=== PATIENT | male | born 1945 | race Caucasian/White ===

== ENCOUNTER 2019-08-29 11:56 | Inpatient (IN) ==
[2019-08-29 14:40] LABS: ABG Base Excess -19.1 MMOL/L (-2.5-2.5); ABG HCO3 10.9 MMOL/L (20-26); ABG Oxygen Saturation 99.8 % (95-100); ABG PCO2 33.4 MM HG (35-48); ABG TCO2 9.5 MMOL/L (23-27); Allen Test Positive; Pt O2 Delivery Device Ventilator
[2019-08-29] MEDS ORDERED: SODIUM CHLORIDE 0.9% 1,000 ML IV ONE (14:41)
[2019-08-29] MEDS ORDERED: MAGNESIUM SULF RIDER 2 GM in PREMIX 1 EACH IV PRN (14:41)
[2019-08-29] MEDS ORDERED: SODIUM PHOSPHATE INJ 22.5 MMOL in SODIUM CHLORIDE 0.9% 250 ML IV PRN (14:41)
[2019-08-29] MEDS ORDERED: INSULIN REGULAR 100 UNIT/ML IV ONE (14:41)
[2019-08-29] MEDS ORDERED: DEXTROSE 10% 250 ML BAG IV PRN ×2 (14:41)
[2019-08-29] MEDS ORDERED: SODIUM BICARB INJ 100 MEQ in STERILE WATER INJ 400 ML IV PRN (14:41)
[2019-08-29] MEDS ORDERED: MAGNESIUM SULF RIDER 4 GM in PREMIX 1 EACH IV PRN (14:41)
[2019-08-29 14:42] LABS: Apearance,Urine CLOUDY (Clear); Bacteria,Urine Few /HPF (Few); Bilirubin,Urine Negative (Negative); Blood, Urine Large mg/dL (Negative); Glucose,Urine (UA) >=500 mg/dL (Negative); Hyaline Casts,Urine 10 /LPF (0-3); Ketones,Urine 80 mg/dL (Negative); Mucus,Urine Occasional /LPF (Occasional); Nitrite,Urine Negative (Negative); Protein,Urine 30 MG/DL; RBC,Urine 2 /HPF (0-4); Squamous Epithelial Cell,Urine Occasional /HPF (0-10); Urine Color Yellow (Yellow); Urine Specific Gravity 1.013 (1.001-1.035); Urine Urobilinogen < 2.0 EU/DL (0.2-1.0); WBC,Urine 2 /HPF (0-6)
[2019-08-29 14:46] LABS: ABG PH 7.102 (7.35-7.45)
[2019-08-29 14:58] LABS: Basophils # 0.1 10*3/uL (0.0-0.2); Basophils % 0.3 % (0.0-0.8); Hematocrit 42.9 VOL% (42.0-52.0); Hemoglobin 14.5 GM/DL (14.0-18.0); Immature Granulocytes % 2.2 %; Immature Granulocytes Absolute 0.32 #; Lymphocytes # 0.7 10*3/uL (1.4-4.0); Mean Corpuscular HGB Conc 33.8 GM/DL (32-36); Mean Corpuscular Volume 102.1 FL (87-102); Mean Platelet Volume 10.7 FL (9.6-12.0); Monocytes % 12.6 % (1.7-12.7); NRBC # 0.02 10*3/uL; Neutrophils % 79.9 % (38.7-73.9); Platelet Count 184 T/CUMM (130-400); Red Cell Distribution Width 12.4 % (9.3-17.3); White Blood Count 14.5 T/CUMM (4-12)
[2019-08-29 15:13] LABS: Calcium 7.8 MG/DL (8.5-10.1)
[2019-08-29] MEDS ORDERED: MIDAZOLAM 100 MG in SODIUM CHLORIDE 0.9% 80 ML IV PRN (15:19)
[2019-08-29 15:27] LABS: Albumin 3.1 G/DL (3.4-5.0); Bilirubin,Total 0.6 MG/DL (0.2-1.0); Calcium 7.8 MG/DL (8.5-10.1); Osmolality,Calculated 297.1 MOS/KG (273-304); Total Protein 6.4 G/DL (6.4-8.3)
[2019-08-29] MEDS: INSULIN REGULAR DRIP 100 ML IV SCH (15:33)
[2019-08-29] MEDS: SODIUM CHLORIDE 0.9% 1,000 ML IV SCH ×2 (15:41→17:43)
[2019-08-29] MEDS: PROPOFOL 1,000 MG/100 ML BOTTLE IV SCH (16:07)
[2019-08-29] MEDS: fentaNYL INJ 1,250 MCG in SODIUM CHLORIDE 0.9% 225 ML IV PRN (17:04)
[2019-08-29] MEDS ORDERED: SODIUM CHLORIDE 0.9% 1,000 ML IV SCH (19:41)
[2019-08-29 19:45] LABS: Calcium 8.1 MG/DL (8.5-10.1); Osmolality,Calculated 298.4 MOS/KG (273-304)
[2019-08-29 23:40] LABS: Osmolality,Calculated 275.4 MOS/KG (273-304)
[2019-08-29] MEDS ORDERED: SODIUM CHLOR 0.9% KCL 20 MEQ 20 MEQ/1,000 ML BAG IV SCH (23:45)
[2019-08-30] MEDS ORDERED: DEXT 5% NACL 0.9% KCL 20 MEQ 20 MEQ/1,000 ML BAG IV SCH (00:30)
[2019-08-30 00:34] LABS: Calcium 5.5 MG/DL (8.5-10.1)
[2019-08-30] MEDS: PROPOFOL 1,000 MG/100 ML BOTTLE IV SCH ×2 (00:34→10:09)
[2019-08-30 01:09] LABS: Calcium 7.6 MG/DL (8.5-10.1); Osmolality,Calculated 294.8 MOS/KG (273-304)
[2019-08-30] MEDS: INSULIN REGULAR DRIP 100 ML IV SCH (01:40)
[2019-08-30 02:39] LABS: Calcium 7.6 MG/DL (8.5-10.1); Osmolality,Calculated 296.7 MOS/KG (273-304)
[2019-08-30] MEDS: DEXT 5% NACL 0.45% KCL 20 MEQ 20 MEQ/1,000 ML BAG IV SCH ×2 (03:32→07:33)
[2019-08-30 03:58] LABS: ABG Base Excess -6.4 MMOL/L (-2.5-2.5); ABG HCO3 19.2 MMOL/L (20-26); ABG Oxygen Saturation 99.1 % (95-100); ABG PCO2 41.5 MM HG (35-48); ABG TCO2 17.6 MMOL/L (23-27); Allen Test Positive; Pt O2 Delivery Device Ventilator
[2019-08-30 04:24] LABS: Basophils % 0.1 % (0.0-0.8); Eosinophils % 0.2 % (0.00-10.9); Hematocrit 36.2 VOL% (42.0-52.0); Hemoglobin 12.7 GM/DL (14.0-18.0); Immature Granulocytes % 0.8 %; Immature Granulocytes Absolute 0.08 #; Lymphocytes # 0.6 10*3/uL (1.4-4.0); Lymphocytes % 6.2 % (21.2-54.2); Mean Corpuscular HGB Conc 35.1 GM/DL (32-36); Mean Corpuscular Volume 97.8 FL (87-102); Mean Platelet Volume 10.9 FL (9.6-12.0); Monocytes % 13.4 % (1.7-12.7); Neutrophils % 79.3 % (38.7-73.9); Platelet Count 136 T/CUMM (130-400); Red Cell Distribution Width 12.8 % (9.3-17.3); White Blood Count 9.7 T/CUMM (4-12)
[2019-08-30 04:46] LABS: Calcium 7.2 MG/DL (8.5-10.1)
[2019-08-30] MEDS: fentaNYL INJ 1,250 MCG in SODIUM CHLORIDE 0.9% 225 ML IV PRN (06:14)
[2019-08-30 06:51] LABS: Calcium 7.5 MG/DL (8.5-10.1); Osmolality,Calculated 287.3 MOS/KG (273-304)
[2019-08-30] MEDS ORDERED: INSULIN REGULAR 100 UNIT/ML SUBCUT SCH ×2 (09:08→21:00)
[2019-08-30] MEDS ORDERED: INSULIN GLARGINE 100 UNIT/ML SUBCUT SCH (09:13)
[2019-08-30] MEDS: THIAMINE 200 MG/2 ML VIAL IV SCH (10:00)
[2019-08-30] MEDS: SODIUM CHLORIDE 0.45% 1,000 ML IV SCH ×3 (10:10→23:38)
[2019-08-30] MEDS: FOLIC ACID INJ 1 MG in SYRINGE 1 EACH IV SCH (10:14)
[2019-08-30] MEDS: HALOPERIDOL 5 MG/ML AMP IV PRN ×2 (12:00→20:13)
[2019-08-30] MEDS ORDERED: LORazepam 2 MG/1 ML VIAL IM PRN (12:59)
[2019-08-30] MEDS ORDERED: MORPHINE 4 MG/1 ML VIAL IV PRN (13:30)
[2019-08-30] MEDS: INSULIN REGULAR 100 UNIT/ML SUBCUT SCH ×2 (14:05→17:33)
[2019-08-30] MEDS: LORazepam 2 MG/1 ML VIAL IV PRN ×2 (15:14→21:45)
[2019-08-30] MEDS ORDERED: GLUCAGON 1 MG VIAL IM PRN ×3 (16:21→21:11)
[2019-08-30 16:41] LABS: Barbiturates Screen,Urine Negative (Negative); Benzodiazepines Screen,Urine Positive (Negative); Cannabinoid Screen,Urine Negative (Negative); Opiate Screen,Urine Negative (Negative); Phencyclidine Screen,Urine Negative (Negative)
[2019-08-30 20:11] LABS: Osmolality,Calculated 293.3 MOS/KG (273-304)
[2019-08-30] MEDS ORDERED: DEXTROSE 50% 25 GM/50 ML VIAL IV PRN ×2 (20:27→21:11)
[2019-08-31] MEDS: INSULIN REGULAR 100 UNIT/ML SUBCUT SCH ×4 (01:07→16:47)
[2019-08-31] MEDS: LORazepam 2 MG/1 ML VIAL IV PRN ×4 (01:12→11:50)
[2019-08-31] MEDS: HALOPERIDOL 5 MG/ML AMP IV PRN (02:56)
[2019-08-31 04:44] LABS: Basophils % 0.1 % (0.0-0.8); Eosinophils % 0.1 % (0.00-10.9); Hematocrit 34.9 VOL% (42.0-52.0); Immature Granulocytes % 0.9 %; Immature Granulocytes Absolute 0.07 #; Lymphocytes # 0.7 10*3/uL (1.4-4.0); Lymphocytes % 8.2 % (21.2-54.2); Mean Corpuscular HGB Conc 34.4 GM/DL (32-36); Mean Corpuscular Volume 98.6 FL (87-102); Monocytes % 11.9 % (1.7-12.7); Neutrophils % 78.8 % (38.7-73.9); Platelet Count 112 T/CUMM (130-400); Red Blood Count 3.54 MC/CUMM (3.8-5.5); Red Cell Distribution Width 12.8 % (9.3-17.3); White Blood Count 7.9 T/CUMM (4-12)
[2019-08-31 05:02] LABS: Albumin 2.3 G/DL (3.4-5.0); Bilirubin,Total 0.5 MG/DL (0.2-1.0); Calcium 8.1 MG/DL (8.5-10.1); Osmolality,Calculated 288.5 MOS/KG (273-304); Total Protein 5.2 G/DL (6.4-8.3)
[2019-08-31 05:41] LABS: Folate 6.5 NG/ML (5.4-24.0)
[2019-08-31] MEDS: POTASSIUM CHLORIDE RIDER 10 MEQ in PREMIX 1 EACH IV PRN ×4 (05:44→09:57)
[2019-08-31] MEDS: SODIUM CHLORIDE 0.45% 1,000 ML IV SCH ×3 (05:59→21:11)
[2019-08-31 07:05] LABS: Anisocytosis 2+; Band Neutrophils 2 % (0-10); Lymphocytes 7 % (20-55); Macrocytosis 2+; Platelet Estimate Normal; Polychromasia 2+; Segmented Neutrophils 79 % (50-85); Total Cells Counted 100
[2019-08-31] MEDS ORDERED: BISACODYL 10 MG SUPP RECTAL PRN (07:59)
[2019-08-31] MEDS: INSULIN GLARGINE 100 UNIT/ML SUBCUT SCH (08:45)
[2019-08-31] MEDS: THIAMINE 200 MG/2 ML VIAL IV SCH (08:45)
[2019-08-31] MEDS ORDERED: INSULIN GLARGINE 100 UNIT/ML SUBCUT SCH (09:00)
[2019-08-31] MEDS: FOLIC ACID INJ 1 MG in SYRINGE 1 EACH IV SCH (09:24)
[2019-08-31] MEDS: chlordiazePOXIDE 25 MG CAPSULE PO SCH ×3 (11:42→21:12)
[2019-08-31] MEDS: INSULIN LISPRO 100 UNIT/ML SUBCUT SCH ×2 (11:50→16:46)
[2019-09-01] MEDS: INSULIN REGULAR 100 UNIT/ML SUBCUT SCH ×5 (05:11→20:35)
[2019-09-01] MEDS: INSULIN LISPRO 100 UNIT/ML SUBCUT SCH ×5 (05:11→20:35)
[2019-09-01 06:07] LABS: Basophils % 0.2 % (0.0-0.8); Eosinophils % 0.2 % (0.00-10.9); Hematocrit 38.8 VOL% (42.0-52.0); Hemoglobin 13.4 GM/DL (14.0-18.0); Immature Granulocytes % 0.8 %; Immature Granulocytes Absolute 0.07 #; Lymphocytes # 0.9 10*3/uL (1.4-4.0); Lymphocytes % 9.2 % (21.2-54.2); Mean Corpuscular HGB Conc 34.5 GM/DL (32-36); Mean Platelet Volume 10.8 FL (9.6-12.0); Monocytes % 11.8 % (1.7-12.7); Neutrophils % 77.8 % (38.7-73.9); Platelet Count 124 T/CUMM (130-400); Red Cell Distribution Width 12.6 % (9.3-17.3); White Blood Count 9.2 T/CUMM (4-12)
[2019-09-01 06:34] LABS: Prealbumin 8.2 MG/DL (20-40)
[2019-09-01 06:35] LABS: Albumin 2.4 G/DL (3.4-5.0); Bilirubin,Total 0.7 MG/DL (0.2-1.0); Calcium 8.8 MG/DL (8.5-10.1); Osmolality,Calculated 280.7 MOS/KG (273-304); Total Protein 5.8 G/DL (6.4-8.3)
[2019-09-01] MEDS: SODIUM CHLORIDE 0.45% 1,000 ML IV SCH ×3 (06:36→21:30)
[2019-09-01] MEDS: THIAMINE 200 MG/2 ML VIAL IV SCH (09:07)
[2019-09-01] MEDS: chlordiazePOXIDE 25 MG CAPSULE PO SCH (09:08)
[2019-09-01] MEDS: FOLIC ACID INJ 1 MG in SYRINGE 1 EACH IV SCH (09:17)
[2019-09-01] MEDS ORDERED: METOPROLOL TARTRATE 5 MG/5 ML VIAL IV ONE (09:19)
[2019-09-01] MEDS: POTASSIUM CHLORIDE RIDER 10 MEQ in PREMIX 1 EACH IV PRN ×4 (09:33→19:11)
[2019-09-01] MEDS: INSULIN GLARGINE 100 UNIT/ML SUBCUT SCH (11:06)
[2019-09-01] MEDS ORDERED: INFLUENZA VIRUS VACCINE 0.5 ML SYRINGE IM ONE (11:19)
[2019-09-01] MEDS ORDERED: chlordiazePOXIDE 10 MG CAPSULE NG PRN (12:37)
[2019-09-01 13:07] LABS: ABG Base Excess -3.6 MMOL/L (-2.5-2.5); ABG HCO3 21.4 MMOL/L (20-26); ABG Oxygen Saturation 98.9 % (95-100); ABG PCO2 31.1 MM HG (35-48); ABG PH 7.414 (7.35-7.45); ABG TCO2 17.5 MMOL/L (23-27)
[2019-09-01] MEDS: ZINC OXIDE PASTE 113 GM TUBE TOP SCH ×2 (13:21→20:34)
[2019-09-01] MEDS: DEXTROSE 10% 25 GM/250 ML BAG IV PRN ×2 (15:56→20:36)
[2019-09-01] MEDS: hydrALAZINE 20 MG/1 ML VIAL IV PRN (20:22)
[2019-09-01] MEDS: LACTULOSE 20 GM/30 ML UDCUP PO SCH (20:24)
[2019-09-01] MEDS: METOPROLOL TARTRATE 5 MG/5 ML VIAL IV PRN (21:59)
[2019-09-02] MEDS: POTASSIUM CHLORIDE RIDER 10 MEQ in PREMIX 1 EACH IV PRN ×6 (00:04→17:37)
[2019-09-02] MEDS: hydrALAZINE 20 MG/1 ML VIAL IV PRN (04:48)
[2019-09-02 05:16] LABS: Basophils % 0.3 % (0.0-0.8); Eosinophils # 0.1 10*3/uL (0.0-0.87); Eosinophils % 1.1 % (0.00-10.9); Hematocrit 37.7 VOL% (42.0-52.0); Hemoglobin 13.3 GM/DL (14.0-18.0); Immature Granulocytes % 0.5 %; Immature Granulocytes Absolute 0.05 #; Lymphocytes # 0.6 10*3/uL (1.4-4.0); Lymphocytes % 6.5 % (21.2-54.2); Mean Corpuscular HGB Conc 35.3 GM/DL (32-36); Mean Corpuscular Volume 96.2 FL (87-102); Mean Platelet Volume 11.2 FL (9.6-12.0); Monocytes % 13.3 % (1.7-12.7); Neutrophils % 78.3 % (38.7-73.9); Platelet Count 117 T/CUMM (130-400); Red Blood Count 3.92 MC/CUMM (3.8-5.5); Red Cell Distribution Width 12.7 % (9.3-17.3); White Blood Count 9.3 T/CUMM (4-12)
[2019-09-02 05:48] LABS: Eosinophils 1 % (0-10); Lymphocytes 8 % (20-55); Segmented Neutrophils 81 % (50-85); Total Cells Counted 100
[2019-09-02 05:51] LABS: Macrocytosis Slight; Platelet Estimate Adequate; Spherocytes 1+
[2019-09-02 06:56] LABS: Albumin 2.3 G/DL (3.4-5.0); Bilirubin,Total 1.1 MG/DL (0.2-1.0); Calcium 8.8 MG/DL (8.5-10.1); Osmolality,Calculated 283.5 MOS/KG (273-304); Total Protein 5.8 G/DL (6.4-8.3)
[2019-09-02] MEDS: INSULIN GLARGINE 100 UNIT/ML SUBCUT SCH (09:27)
[2019-09-02] MEDS: ZINC OXIDE PASTE 113 GM TUBE TOP SCH ×2 (09:28→22:51)
[2019-09-02] MEDS: INSULIN REGULAR 100 UNIT/ML SUBCUT SCH ×4 (09:29→22:51)
[2019-09-02] MEDS: INSULIN LISPRO 100 UNIT/ML SUBCUT SCH ×4 (09:29→22:42)
[2019-09-02] MEDS: LACTULOSE 20 GM/30 ML UDCUP PO SCH (09:30)
[2019-09-02] MEDS: THIAMINE 200 MG/2 ML VIAL IV SCH (09:30)
[2019-09-02] MEDS: FOLIC ACID INJ 1 MG in SYRINGE 1 EACH IV SCH (09:31)
[2019-09-02] MEDS: SODIUM CHLORIDE 0.45% 1,000 ML IV SCH (10:26)
[2019-09-02] MEDS: LACTULOSE 20 GM/30 ML UDCUP NG SCH ×2 (15:13→22:41)
[2019-09-02] MEDS: METOPROLOL TARTRATE 5 MG/5 ML VIAL IV PRN (16:02)
[2019-09-03] MEDS: POTASSIUM CHLORIDE RIDER 10 MEQ in PREMIX 1 EACH IV PRN (00:26)
[2019-09-03] MEDS: hydrALAZINE 20 MG/1 ML VIAL IV PRN ×2 (01:59→20:28)
[2019-09-03] MEDS: METOPROLOL TARTRATE 5 MG/5 ML VIAL IV PRN (03:25)
[2019-09-03 03:46] LABS: Basophils # 0.1 10*3/uL (0.0-0.2); Basophils % 0.4 % (0.0-0.8); Eosinophils # 0.1 10*3/uL (0.0-0.87); Eosinophils % 0.4 % (0.00-10.9); Hematocrit 40.5 VOL% (42.0-52.0); Hemoglobin 13.8 GM/DL (14.0-18.0); Immature Granulocytes Absolute 0.14 #; Lymphocytes # 0.7 10*3/uL (1.4-4.0); Lymphocytes % 5.1 % (21.2-54.2); Mean Corpuscular HGB Conc 34.1 GM/DL (32-36); Mean Corpuscular Volume 98.8 FL (87-102); Mean Platelet Volume 10.6 FL (9.6-12.0); Monocytes % 14.3 % (1.7-12.7); Neutrophils % 78.8 % (38.7-73.9); Platelet Count 211 T/CUMM (130-400); Red Cell Distribution Width 12.8 % (9.3-17.3); White Blood Count 13.8 T/CUMM (4-12)
[2019-09-03 05:34] LABS: Albumin 2.3 G/DL (3.4-5.0); Bilirubin,Total 1.2 MG/DL (0.2-1.0); Calcium 9.3 MG/DL (8.5-10.1); Osmolality,Calculated 285.7 MOS/KG (273-304)
[2019-09-03] MEDS ORDERED: LACTULOSE 20 GM/30 ML UDCUP NG ONE (08:24)
[2019-09-03] MEDS ORDERED: FUROSEMIDE 40 MG/4 ML VIAL IV ONE (08:28)
[2019-09-03] MEDS: INSULIN LISPRO 100 UNIT/ML SUBCUT SCH ×4 (08:35→21:00)
[2019-09-03] MEDS ORDERED: chlordiazePOXIDE 10 MG CAPSULE NG ONE (08:36)
[2019-09-03 08:44] LABS: ABG Base Excess -0.4 MMOL/L (-2.5-2.5); ABG Oxygen Saturation 98.1 % (95-100); ABG PCO2 30.8 MM HG (35-48); ABG PH 7.467 (7.35-7.45); ABG TCO2 19.2 MMOL/L (23-27)
[2019-09-03] MEDS: THIAMINE 200 MG/2 ML VIAL IV SCH (08:46)
[2019-09-03] MEDS: FOLIC ACID INJ 1 MG in SYRINGE 1 EACH IV SCH (08:48)
[2019-09-03] MEDS: LACTULOSE 20 GM/30 ML UDCUP NG SCH ×3 (08:49→21:05)
[2019-09-03] MEDS: INSULIN GLARGINE 100 UNIT/ML SUBCUT SCH (08:58)
[2019-09-03] MEDS: INSULIN REGULAR 100 UNIT/ML SUBCUT SCH ×4 (09:02→21:00)
[2019-09-03] MEDS ORDERED: METOPROLOL TARTRATE 5 MG/5 ML VIAL IV ONE (09:47)
[2019-09-03] MEDS: SPIRONOLACTONE 50 MG TABLET PO SCH ×2 (12:00→21:05)
[2019-09-03] MEDS: CLINDAMYCIN INJ 600 MG in PREMIX 1 EACH IV SCH ×2 (12:46→20:23)
[2019-09-03] MEDS: DOCUSATE/SENNA 50-8.6 MG TABLET PO SCH ×2 (12:59→21:05)
[2019-09-03] MEDS: ASPIRIN 325 MG TABLET NG SCH (12:59)
[2019-09-03] MEDS: ENOXAPARIN 30 MG/0.3 ML SYRINGE SUBCUT SCH (13:13)
[2019-09-03] MEDS: ZINC OXIDE PASTE 113 GM TUBE TOP SCH ×2 (14:42→20:32)
[2019-09-03] MEDS: FUROSEMIDE 40 MG/4 ML VIAL IV SCH (17:40)
[2019-09-03] MEDS ORDERED: RANITIDINE 150 MG/10 ML 30 ML BOTTLE NG SCH (21:00)
[2019-09-03] MEDS: METOPROLOL TARTRATE 25 MG TABLET NG SCH (21:05)
[2019-09-03] MEDS: ALBUTEROL/IPRATROPIUM 3 ML NEB RESP TX SCH (21:12)
[2019-09-03] MEDS: BUDESONIDE 0.5 MG/2 ML NEB RESP TX SCH (21:12)
[2019-09-04] MEDS: ALBUTEROL/IPRATROPIUM 3 ML NEB RESP TX SCH ×3 (01:29→13:24)
[2019-09-04] MEDS: CLINDAMYCIN INJ 600 MG in PREMIX 1 EACH IV SCH ×2 (04:26→12:53)
[2019-09-04] MEDS: LORazepam 2 MG/1 ML VIAL IV PRN ×2 (04:34→10:27)
[2019-09-04 05:18] LABS: Basophils % 0.2 % (0.0-0.8); Eosinophils # 0.1 10*3/uL (0.0-0.87); Eosinophils % 1.4 % (0.00-10.9); Hematocrit 36.8 VOL% (42.0-52.0); Hemoglobin 12.7 GM/DL (14.0-18.0); Lymphocytes # 0.8 10*3/uL (1.4-4.0); Lymphocytes % 8.5 % (21.2-54.2); Mean Corpuscular HGB Conc 34.5 GM/DL (32-36); Mean Corpuscular Volume 98.7 FL (87-102); Monocytes % 21.8 % (1.7-12.7); Neutrophils % 67.1 % (38.7-73.9); Platelet Count 204 T/CUMM (130-400); Red Blood Count 3.73 MC/CUMM (3.8-5.5); Red Cell Distribution Width 12.8 % (9.3-17.3); White Blood Count 9.6 T/CUMM (4-12)
[2019-09-04 05:38] LABS: Albumin 2.2 G/DL (3.4-5.0); Bilirubin,Total 0.9 MG/DL (0.2-1.0); Calcium 9.1 MG/DL (8.5-10.1); Osmolality,Calculated 294.1 MOS/KG (273-304); Total Protein 5.9 G/DL (6.4-8.3)
[2019-09-04 05:47] LABS: Band Neutrophils 4 % (0-10); Lymphocytes 8 % (20-55); Platelet Estimate Normal; Segmented Neutrophils 73 % (50-85); Total Cells Counted 100
[2019-09-04 05:58] LABS: Calcium 8.6 MG/DL (8.5-10.1); Osmolality,Calculated 290.4 MOS/KG (273-304)
[2019-09-04] MEDS: BUDESONIDE 0.5 MG/2 ML NEB RESP TX SCH (07:50)
[2019-09-04] MEDS: INSULIN REGULAR 100 UNIT/ML SUBCUT SCH ×3 (08:15→18:18)
[2019-09-04] MEDS: INSULIN LISPRO 100 UNIT/ML SUBCUT SCH ×3 (08:15→18:17)
[2019-09-04] MEDS: ENOXAPARIN 30 MG/0.3 ML SYRINGE SUBCUT SCH (10:25)
[2019-09-04] MEDS: FUROSEMIDE 40 MG/4 ML VIAL IV SCH ×2 (10:26→15:59)
[2019-09-04] MEDS: THIAMINE 200 MG/2 ML VIAL IV SCH (10:30)
[2019-09-04] MEDS: FOLIC ACID INJ 1 MG in SYRINGE 1 EACH IV SCH (10:32)
[2019-09-04] MEDS: DOCUSATE/SENNA 50-8.6 MG TABLET PO SCH (10:34)
[2019-09-04] MEDS: SPIRONOLACTONE 50 MG TABLET PO SCH (10:34)
[2019-09-04] MEDS: METOPROLOL TARTRATE 25 MG TABLET NG SCH (10:34)
[2019-09-04] MEDS: LACTULOSE 20 GM/30 ML UDCUP NG SCH ×2 (10:34→15:44)
[2019-09-04] MEDS: ZINC OXIDE PASTE 113 GM TUBE TOP SCH (10:34)
[2019-09-04] MEDS: ASPIRIN 325 MG TABLET NG SCH (10:37)
[2019-09-04] MEDS ORDERED: LACTULOSE 320 GM/480 ML BOTTLE RECTAL ONE (14:00)
[2019-09-04] MEDS: INSULIN GLARGINE 100 UNIT/ML SUBCUT SCH (15:01)
[2019-09-04 16:57] VITALS: BP 151/82
[2019-09-04] MEDS ORDERED: INFLUENZA VIRUS VACCINE 0.5 ML SYRINGE IM ONE (17:51)
[2019-09-04] MEDS ORDERED: METOPROLOL TARTRATE 25 MG TABLET PO SCH (21:00)
== END 2019-09-04 18:58 | DRG 637 ==
LOC: SUATTDRO 14:04 → N.ICU 14:04 → N.4E 08-31 12:40
PROVIDERS: ADMIT Internal Medicine; ATTEND Family Medicine